=== PATIENT | female | born 1955 | race Caucasian/White ===

== ENCOUNTER 2016-11-12 18:42 | Emergency (ER) | payer OTHER ==
[~2016-11-12] VITALS: Ht 157.5 cm; Wt 86.6 kg
--- NOTE | ~2016-11-12 | CR141 ---
[facility] A Service [facility] RADIOLOGY TEXT RESULTS PATIENT: ALFA GUO LOCATION: SED : 53 UNIT #: [id number] AGE: [address]: Nancy Santamaria SEX: F ORDER DR: [id number] [address] [address] [id number] E MR#: [id number] Acc #: [id number] NAME: ALFA GUO. : 1955 SEX: F STUDY DATE/TIME: 11/12/2016 19:34 UNIT: SED ROOM: STUDY DESCRIPTION: CR Hand Min 3 Views Lt Attending Physician: Nancy Santamaria Pa-C Ordering Physician: Physician Non-Staff Primary Care Physician: Sveta Girard A.P.R.N. MEDICAL IMAGING REPORT This report is preliminary unless electronic signature is present. EXAM Left hand 11/12/2016. INDICATION 61-year-old female with a bump, burning and swelling of the left hand for 2.5 hours. No known injury. Contusion. TECHNIQUE 3 views of the left hand. COMPARISON Compared with 12/04/2013. FINDINGS No acute fracture. There are degenerative changes of the first carpometacarpal joint. There is dorsal soft tissue swelling which is nonspecific and could reflect cellulitis. IMPRESSION Nonspecific dorsal soft tissue swelling which may reflect cellulitis. No acute fracture. Degenerative change as described. Dictated by... Gregorio Hale M.D. THIS IS AN ELECTRONICALLY VERIFIED REPORT Gregorio Hale M.D. at 11/13/2016 2:20 PM JLY/lexi TD: 11/13/2016 10:20 [facility] A Service [facility] RADIOLOGY TEXT RESULTS PATIENT: ALFA GUO LOCATION: SED : 53 UNIT #: [id number] AGE: [address]: Nancy Santamaria SEX: F ORDER DR: JOB #: [id number] MEDICAL IMAGING REPORT Page 1 of 1
[~2016-11-12 18:42] MED LIST: ACETAMINOPHEN PO; ADVAIR 250-501 EAC1 IH; ADVAIR 250-501 EACH IH; ADVAIR 250-501 EACH INH; ALBUTEROL17 GM INH; ARIXTRA7.5 MG/0.6 SQ; ASPIRIN EC81 M1 PO; ASPIRIN81 MG PO; ATROVENT HFA12.9 G1 IH; ATROVENT NASAL15 ML; ATROVENT30 ML NS; CELEXA PO; CELEXA20 MG PO; CITALOPRAM HBR40 MG PO; COMBIVENT INH14.7 G1 IH; COMBIVENT RESPIM4 GM IH; COREG3.125 MG PO; COREG6.25 MG PO; COUMADIN PO; COUMADIN4 MG PO; COUMADIN5 MG PO; COUMADIN7.5 MG PO; DEMADEX PO; DESYREL50 MG PO; DITROPAN5 MG PO; FAMOTIDINE20 M1 PO; FUROSEMIDE40 MG PO; GABAPENTIN300 M2 PO; GABAPENTIN300 MG PO; HYDROCODON-ACE1 EAC7 PO; LASIX20 MG PO; LEVOTHROID50 MCG PO; LEVOTHYROXINE50 MCG PO; LIPITOR40 MG PO; LISINOPRIL10 MG PO; LISINOPRIL20 MG PO; LOVENOX SUBQ; LOVENOX100 MG/ML INJ; LOVENOX100 MG/ML SUBQ; NITROGLYCERIN0.4 MG SL; OMEPRAZOLE20 M1 PO; PANTOPRAZOLE SO40 MG PO; PHENERGAN DM SYRUP PO; PLAVIX PO; PREDNISONE10 MG PO; PROTONIX PO; SIMVASTATIN40 MG PO; SYNTHROID0.05 MG PO; VANCOMYCIN750 MG/150 IV; VITAMIN D250000 UNIT PO; WARFARIN SODIU7.5 MG PO
[2016-11-12] MEDS ORDERED: ATORVASTATIN CA80 MG (18:59)
[2016-11-12] MEDS ORDERED: NAPROXEN250 MG (18:59)
[2016-11-12] MEDS ORDERED: ADVAIR 250-501 EACH (18:59)
[2016-11-12] MEDS ORDERED: ASPIRIN81 M2 (18:59)
[2016-11-12] MEDS ORDERED: CITALOPRAM HBR40 MG (18:59)
[2016-11-12] MEDS ORDERED: CARVEDILOL6.25 MG (18:59)
[2016-11-12] MEDS ORDERED: PREDNISONE (18:59)
[2016-11-12] MEDS ORDERED: KETOCONAZOLE15 GM (19:00)
[2016-11-12] MEDS ORDERED: NITROGLYGERIN0.4 MG (19:00)
[2016-11-12] MEDS ORDERED: TIROSINT50 MCG (19:00)
[2016-11-12] MEDS ORDERED: FUROSEMIDE40 MG (19:00)
[2016-11-12] MEDS ORDERED: PRINIVIL10 MG (19:00)
[2016-11-12] MEDS ORDERED: OMEPRAZOLE20 M1 (19:00)
[2016-11-12] MEDS ORDERED: ALBUTEROL17 GM (19:01)
[2016-11-12] MEDS ORDERED: DITROPAN5 MG (19:01)
[2016-11-12] MEDS ORDERED: WARFARIN SODIUM6 M1 (19:01)
[2016-11-12] MEDS ORDERED: VITAMIN D250000 UNIT (19:01)
[2016-11-12 19:48] LABS: PROTHROMBIN TIME (PATIENT) 100.8 SECONDS (9.5-12.4)
[2016-11-12 19:55] LABS: PARTIAL THROMBOPLASTIN TIME 58.7 SECONDS (25.6-38.1)
[2016-11-12 19:57] LABS: INR 8.7
[2016-11-12 20:09] LABS: BASOPHIL% 0.2 % (0-2.5); EOSINOPHIL% 0.1 % (0.0-7.0); HEMATOCRIT 39.5 % (35.0-45.0); HEMOGLOBIN 13.2 gm/dL (12.0-16.0); LYMPHOCYTE# 1.1 X10e3 (1.0-3.5); LYMPHOCYTE% 10.3 % (17.0-45.0); MEAN CELL VOLUME 77.9 FL (83-96); MEAN CORPUSCULAR HGB CONC 33.4 g/dL (30-36); MEAN PLATELET VOLUME 10.7 FL (6.5-11.5); MONOCYTE# 0.4 X10e3 (0-1.0); MONOCYTE% 4.3 % (3.0-12.0); NEUTROPHIL# 8.8 X10e3 (1.5-7.1); NEUTROPHIL% 85.1 % (40-75); PLATELET COUNT 198 X10e3 (140-420); RED BLOOD COUNT 5.07 X10e (3.90-5.30); RED CELL DISTRIBUTION WIDTH 19.8 % (11.0-15.5); WHITE BLOOD COUNT 10.3 X10e3 (4.0-10.5)
[2016-11-12 20:20] LABS: ALBUMIN SERUM 4.2 g/dL (3.5-5.0); BILIRUBIN,TOTAL 0.4 mg/dL (0.2-2.0); BUN/CREATININE RATIO 24.66; CALCIUM SERUM 8.8 mg/dL (8.4-10.2); CREATININE SERUM 1.5 mg/dL (0.6-1.4); DIFF IND NO; POTASSIUM 4.4 mmol/L (3.5-5.1); PROTEIN TOTAL SERUM 7.2 g/dL (6.0-8.3)
== END 2016-11-12 20:51 | disposition home or self-care (01) ==
LOC: SED 18:42
PROVIDERS: Physician Assistant
DX: M79.81 Nontraumatic hematoma of soft tissue (principal); R79.1 Abnormal coagulation profile; K21.9 Gastro-esophageal reflux disease without esophagitis; F41.9 Anxiety disorder, unspecified; M10.9 Gout, unspecified; I11.0 Hypertensive heart disease with heart failure; I50.9 Heart failure, unspecified; F17.200 Nicotine dependence, unspecified, uncomplicated; Z95.1 Presence of aortocoronary bypass graft; Z90.49 Acquired absence of other specified parts of digestive tract; Z88.0 Allergy status to penicillin
CPT/HCPCS: 29280; 36415; 73130; 80053; 85025; 85610; 85730; 99283